=== PATIENT | female | born 1965 | race Caucasian/White ===

== ENCOUNTER 2018-11-15 07:37 | Emergency (ER) | payer OTHER ==
[~2018-11-15] VITALS: Ht 167.6 cm; Wt 104.3 kg
--- NOTE | 2018-11-15 07:37 | NUR ---
0730- PATIENT BIBA TO BED 10.
[2018-11-15 07:47] VITALS: BP 156/80
--- NOTE | 2018-11-15 07:58 | NUR ---
53 yo f biba am als after being found actively seizing at home for an unknown amount of time. per ems, the pt was still actively seizing when they arrived. pt gcs 4 at this time, responds to painful stimuli with vss. 5 of versed given in the field. pt not actively seizing upon arrival to ED. Pt pupils reactive, 3 mm. rr even and unlabored. blood sugar 334 in the field, 280 at this time in ED.
[2018-11-15] MEDS ORDERED: LEVE250T1 PO (08:03)
[2018-11-15] MEDS ORDERED: METH750T9 PO (08:03)
[2018-11-15] MEDS ORDERED: [UNRECOGNIZED DRUG - CODE] PO (08:03)
[2018-11-15] MEDS ORDERED: DEXA2TAB PO (08:03)
[2018-11-15] MEDS ORDERED: ESCI20TA PO (08:03)
[2018-11-15] MEDS ORDERED: OMEP20TC12 PO (08:04)
[2018-11-15] MEDS ORDERED: HYDR2TAB6 PO (08:05)
[2018-11-15] MEDS ORDERED: LAM200 PO (08:06)
[2018-11-15] MEDS ORDERED: LORazepam 2 MG/ML VIAL IVP ONE (08:15)
[2018-11-15] MEDS ORDERED: DEXAMETHASONE 10 MG/ML VIAL IVP ONE (08:15)
[2018-11-15 08:43] LABS: HEMOGLOBIN 14.5 g/dL (12.0-16.0); MEAN CORPUSCULAR HEMOGLOBIN 26 pg (27-31); MEAN CORPUSCULAR HGB CONC 31 g/dL (33-37); RED BLOOD CELL COUNT(AUTO) 5.55 MIL/uL (4.20-5.40)
--- NOTE | 2018-11-15 08:54 | NUR ---
pt taken to ct via remilia.
[2018-11-15 09:17] LABS: MEAN CORPUSCULAR VOLUME 84.7 fL (80-94); PLATELET COUNT (AUTO) 99 K/uL (140-450); RED CELL DISTRIBUTION WIDTH 18.5 % (11.6-13.7); WHITE BLOOD COUNT (AUTO) 7.9 K/uL (4.8-10.8)
--- NOTE | 2018-11-15 09:19 | NUR ---
# 8 FR Urinary catheter inserted utilizing sterile technique. Immediate return of 30 ml clear, yellow urine noted. Urine sample collected and sent to lab. Pt tolerated procedure well.
[2018-11-15 09:31] LABS: LYMPHOCYTES % (MANUAL) 17 % (20-46); MONOCYTES % (MANUAL) 5 % (5-12)
[2018-11-15 09:45] LABS: ANION GAP 27.3 (8-16); CARBON DIOXIDE 17.1 mmol/L (21-32); CHLORIDE 103 mmol/L (98-107); CREATININE 1.3 mg/dL (0.6-1.3); GFR ARICAN-AMERICAN 55 mL/min (>90); GLUCOSE 327 mg/dL (74-106); POTASSIUM 3.4 mmol/L (3.5-5.1); SODIUM SERUM 144 mmol/L (136-145); UREA NITROGEN, BLOOD 13 mg/dL (7-18)
[2018-11-15 09:58] LABS: ALBUMIN 3.9 g/dL (3.4-5.0); ASPARTATE AMINOTRANSFERASE 666 U/L (15-37); MAGNESIUM 2.5 mg/dL (1.8-2.4); TOTAL BILIRUBIN 1.1 mg/dL (0.0-1.0)
[2018-11-15 10:20] LABS: APPEARANCE,URINE CLOUDY (CLEAR); BILIRUBIN,URINE NEGATIVE (NEGATIVE); BLOOD, URINE 1+ (NEGATIVE); COLOR,URINE YELLOW (YELLOW); LEUKOCYTE ESTERASE ,URINE 1+ (NEGATIVE); NITRITE, URINE NEGATIVE (NEGATIVE); PH,URINE 5.5 (5.0-9.0); UGLUCOSE TRACE (NEGATIVE)
--- NOTE | 2018-11-15 10:30 | NUR ---
EKG performed at by YAMILE. Physician given copy of EKG for review.
[2018-11-15 10:34] LABS: RBC,URINE 3-10 (FEW) /HPF (0-5)
[2018-11-15 11:18] LABS: BARBITURATE, URINE POS. ng/ml (NEG <=200); BENZODIAZEPINE, URINE POS. ng/mL (NEG <=200); CANNABINOID, URINE NEG. ng/mL (NEG <=50); COCAINE, URINE NEG. ng/mL (NEG <=300); OPIATE, URINE POS. ng/mL (NEG <=2000); PHENCYCLIDINE SCREEN,URINE NEG. ng/mL (NEG <=25)
--- NOTE | 2018-11-15 11:30 | NUR ---
PATIENT RESTING, VSS.
--- NOTE | 2018-11-15 12:30 | NUR ---
# 16 FR Ramirez catheter with 30 ml utilizing sterile technique. Immediate return of 300 ml CLEAR, YELLOW urine noted. Bedside drainage bag placed below level of bladder. Urine sample collected and sent to lab. Pt tolerated procedure WELL.
--- NOTE | 2018-11-15 13:01 | NUR ---
CALLED [facility], SPOKE WITH KEVIN PAN TO GIVE REPORT. [phone]
--- NOTE | 2018-11-15 13:25 | NUR ---
Patient to be transferred to [facility]. Is being transferred due to HIGHER LEVEL OF CARE. Receiving facility has accepting physician and available space. ER physician has signed transfer form. Patient or responsible republican has agreed to transfer and signed form. Patient belongings inventoried and will be sent with patient. Copy of nursing notes, lab reports, EKG, Physicians Orders and X-rays to be sent with patient. Report called to KEVIN PAN at receiving facility. [facility] ambulance service USED for transfer.
[2018-11-15 13:26] VITALS: BP 166/85
== END 2018-11-15 13:25 | disposition short-term general hospital (02) ==
LOC: MED 07:37
DX: G40.901 Epilepsy, unspecified, not intractable, with status epilepticus (principal); S01.552A Open bite of oral cavity, initial encounter; D49.6 Neoplasm of unspecified behavior of brain; Z98.2 Presence of cerebrospinal fluid drainage device; Y04.1XXA Assault by human bite, initial encounter; Y93.89 Activity, other specified; Y92.89 Other specified places as the place of occurrence of the external cause; Y99.8 Other external cause status
CPT/HCPCS: 36415; 70450; 71045; 80053; 80305; 81001; 82550; 82948; 83605; 83735; 84484; 85025; 85610; 85730; 87040; 87086; 93005; 96374; 96375; 99285; G0482; J1100; J2060; Q0092; 99284